=== PATIENT | female | born 1990 | race Caucasian/White ===

== ENCOUNTER 2017-12-05 13:56 | Emergency (ER) | payer SELFPAY ==
[~2017-12-05 13:56] MED LIST: CIPRO500 MG PO; FLEXERIL5 MG PO; MOTRIN800 MG PO; PENICILLIN-VK500 M1 PO; PENICILLIN250 MG PO; PREDNISONE10 MG PO; VICO10300 PO; ZOFRAN ODT4 MG SL
[2017-12-05 14:37] LABS: BILIRUBIN NEGATIVE (NEGATIVE); BLOOD 2+ (NEGATIVE); CLARITY CLOUDY (CLEAR); COLOR YELLOW (YELLOW); GLUCOSE NEGATIVE (NEGATIVE); KETONE TRACE (NEGATIVE); LEUKO ESTERASE 3+ (NEGATIVE); NITRITE NEGATIVE (NEGATIVE); SPECIFIC GRAVITY 1.025 (1.005-1.030); UROBILINOGEN 0.2 E.U./dl (0.2-1.0)
[2017-12-05 14:51] LABS: WBC TNTC wbc/hpf (0-5)
[2017-12-05] MEDS ORDERED: CEPHALEXIN500 M1 PO (15:31)
== END 2017-12-05 15:35 | disposition home or self-care (01) ==
LOC: ED 13:56
PROVIDERS: Physician Assistant
DX: O23.41 Unspecified infection of urinary tract in pregnancy, first trimester (principal); O12.11 Gestational proteinuria, first trimester; Z90.49 Acquired absence of other specified parts of digestive tract; Z98.890 Other specified postprocedural states; Z3A.01 Less than 8 weeks gestation of pregnancy

== ENCOUNTER → 2018-02-25 | Outpatient (CLI) | payer OTHER ==
[~2018-02-25] MED LIST changes: +AMOXICILLIN500 M2 PO; +CEPHALEXIN500 M1 PO
== END | disposition home or self-care (01) ==
LOC: US 13:00
DX: O30.002 Twin pregnancy, unspecified number of placenta and unspecified number of amniotic sacs, second trimester (principal); Z3A.15 15 weeks gestation of pregnancy

== ENCOUNTER 2018-02-26 21:11 | Emergency (ER) | payer OTHER ==
[~2018-02-26] VITALS: Ht 177.8 cm; Wt 86.2 kg
[~2018-02-26 21:11] MED LIST changes: -AMOXICILLIN500 M2 PO
[2018-02-26] MEDS ORDERED: AMOXICILLIN500 M2 PO (21:49)
== END 2018-02-26 21:56 | disposition home or self-care (01) ==
LOC: ED 21:11
DX: O26.892 Other specified pregnancy related conditions, second trimester (principal); H61.23 Impacted cerumen, bilateral; H66.91 Otitis media, unspecified, right ear; Z90.49 Acquired absence of other specified parts of digestive tract; Z98.890 Other specified postprocedural states; Z3A.16 16 weeks gestation of pregnancy

== ENCOUNTER 2023-02-24 19:57 | Emergency (ER) | payer OTHER ==
[~2023-02-24] VITALS: Ht 172.7 cm; Wt 117.9 kg
[~2023-02-24 19:57] MED LIST changes: +AMOXICILLIN500 M2 PO
== END 2023-02-24 22:51 | disposition home or self-care (01) ==
LOC: ED 19:57
DX: S01.01XA Laceration without foreign body of scalp, initial encounter (principal); Z90.49 Acquired absence of other specified parts of digestive tract; Z98.890 Other specified postprocedural states; W01.198A Fall on same level from slipping, tripping and stumbling with subsequent striking against other object, initial encounter; Y93.89 Activity, other specified; Y92.009 Unspecified place in unspecified non-institutional (private) residence as the place of occurrence of the external cause; Y99.8 Other external cause status

== ENCOUNTER 2023-03-02 18:01 | Emergency (ER) | payer OTHER ==
[~2023-03-02] VITALS: Ht 180.3 cm; Wt 113.4 kg
== END 2023-03-02 19:34 | disposition home or self-care (01) ==
LOC: ED 18:01
DX: S01.01XD Laceration without foreign body of scalp, subsequent encounter (principal); Z48.01 Encounter for change or removal of surgical wound dressing; Z79.2 Long term (current) use of antibiotics; Z90.49 Acquired absence of other specified parts of digestive tract; Z98.890 Other specified postprocedural states; W18.39XD Other fall on same level, subsequent encounter

== ENCOUNTER → 2023-03-02 | Outpatient (CLI) | payer OTHER ==
[2023-03-02 09:55] LABS: HEMATOCRIT 44.2 % (37.0-47.0); MEAN CELL VOLUME 93.1 fl (81.0-99.0); MEAN CORPUSCULAR HGB 31.2 pg (27.0-31.0); MEAN CORPUSCULAR HGB CONC 33.5 g/dl (33.0-37.0); MEAN PLATELET VOLUME 9.7 fl (9.6-12.3); RED BLOOD COUNT 4.75 10*6/uL (4.10-5.10); RED CELL DISTRI WIDTH 12.4 % (0-14.5); WHITE BLOOD COUNT 13.9 10*3/uL (4.8-10.8)
[2023-03-02 10:17] LABS: ALKALINE PHOSPHATASE 117 U/L (46-116); BUN 8 mg/dl (9-23); CHLORIDE 106 mmol/L (98-107); CHOLESTEROL 166 mg/dL (<200); LDL CHOLESTEROL 105 mg/dL (9-159); POTASSIUM 4.2 mmol/L (3.4-5.1); SGPT/ALT 37 U/L (10-49); TOTAL PROTEIN 7.2 gm/dL (6.0-8.0); TRIGLYCERIDES 141 mg/dl (<150)
== END | disposition home or self-care (01) ==
LOC: LAB 09:12
PROVIDERS: ATTEND Family Medicine
DX: Z00.00 Encounter for general adult medical examination without abnormal findings (principal); Z13.220 Encounter for screening for lipoid disorders; R53.83 Other fatigue; R68.84 Jaw pain

== ENCOUNTER 2023-08-04 10:15 | Emergency (ER) | payer OTHER ==
[~2023-08-04] VITALS: Ht 180.3 cm; Wt 127.0 kg
[2023-08-04] MEDS ORDERED: PENICILLIN VK500 MG PO (11:01)
== END 2023-08-04 11:10 | disposition home or self-care (01) ==
LOC: ED 10:15
DX: K04.7 Periapical abscess without sinus (principal); Z79.2 Long term (current) use of antibiotics; G43.909 Migraine, unspecified, not intractable, without status migrainosus; Z90.49 Acquired absence of other specified parts of digestive tract; Z98.890 Other specified postprocedural states

== ENCOUNTER 2024-05-14 20:17 | Emergency (ER) | payer OTHER ==
[~2024-05-14] VITALS: Ht 177.8 cm; Wt 102.1 kg
[~2024-05-14 20:17] MED LIST changes: +PENICILLIN VK500 MG PO
[2024-05-14] MEDS ORDERED: AMOXICILLIN500 M2 PO (21:31)
[2024-05-14] MEDS ORDERED: AMOXICILLIN 500 MG CAP PO ONE (21:35)
== END 2024-05-14 21:53 | disposition home or self-care (01) ==
LOC: ED 20:17
DX: J02.9 Acute pharyngitis, unspecified (principal); R13.10 Dysphagia, unspecified; Z90.49 Acquired absence of other specified parts of digestive tract; Z98.890 Other specified postprocedural states